=== PATIENT | male | born 1955 | race Caucasian/White ===

== ENCOUNTER 2018-07-18 21:04 | Inpatient (IN) | payer BC ==
[~2018-07-18] VITALS: Ht 185.4 cm; Wt 92.7 kg
[2018-07-18] MEDS ORDERED: OMEP20TA62 PO (21:30)
[2018-07-18 22:20] LABS: BASOPHILS # (AUTO) 0.03 x10^3/uL (0-0.1); BASOPHILS % (AUTO) 0 % (0-1); EOSINOPHILS # (AUTO) 0.28 x10^3/uL (0-0.4); EOSINOPHILS % (AUTO) 3 % (1-7); LYMPHOCYTES # (AUTO) 2.05 x10^3/uL (1-3.4); LYMPHOCYTES % (AUTO) 20 % (22-44); MD NO; MEAN CORPUSCULAR HEMOGLOBIN 31.2 pg (27.5-34.5); MEAN CORPUSCULAR HGB CONC 34.2 g/dL (33.2-36.2); MEAN CORPUSCULAR VOLUME 91.4 fL (81-97); MEAN PLATELET VOLUME 7.8 fL (7.4-10.4); MONOCYTES # (AUTO) 0.73 x10^3/uL (0.2-0.8); MONOCYTES % (AUTO) 7 % (2-9); NEUTROPHILS # (AUTO) 6.96 x10^3/uL (1.8-6.8); NEUTROPHILS % (AUTO) 69 % (42-75); PLATELET COUNT 260 x10^3/uL (130-400); RED BLOOD COUNT 5.21 x10^6/uL (4.38-5.82); RED CELL DISTRIBUTION WIDTH 12.9 % (9.4-14.8)
[2018-07-18 22:31] LABS: ALBUMIN 3.2 g/dL (3.4-5.0); ANION GAP 5 mmol/L (5-15); CALCIUM 8.2 mg/dL (8.5-10.1); CHLORIDE 113 mmol/L (98-107)
[2018-07-18 22:36] LABS: CREATININE 0.89 mg/dL (0.7-1.3)
[2018-07-18] MEDS ORDERED: HEPARIN 5,000 UNITS/ML, 1ML IV PRN (23:00)
[2018-07-18] MEDS ORDERED: HEPARIN 5,000 UNITS/ML, 1ML IV ONE (23:00)
[2018-07-18] MEDS ORDERED: HEPARIN 25,000 UNITS/500ML PMX 500 ML IV PRN (23:00)
--- NOTE | 2018-07-18 23:00 | NUR ---
2ND IV STARTED PRIOR TO HEPARIN DRIP STARTED.
[2018-07-18] MEDS ORDERED: HEPARIN 5,000 UNITS/ML, 1ML ONE (23:06)
[2018-07-18] MEDS ORDERED: HEPARIN 25,000 UNITS/500ML PMX 500 ML ONE (23:06)
[2018-07-19] MEDS ORDERED: morphine SULFATE 10 MG/ML, 1ML IVPush PRN
[2018-07-19] MEDS ORDERED: hydrALAzine 20 MG/ML, 1ML IVPush PRN
[2018-07-19] MEDS ORDERED: ZOLPIDEM 5MG TABLET PO PRN
[2018-07-19] MEDS ORDERED: NITROGLYCERIN 0.4 MG BOTTLE (25 TABS) SL PRN
[2018-07-19] MEDS ORDERED: ACETAMINOPHEN 325 MG TABLET PO PRN
[2018-07-19] MEDS ORDERED: ONDANSETRON 2MG/ML, 2ML IVPush PRN
[2018-07-19 00:30] VITALS: BP 112/80
[2018-07-19] MEDS: ATORVASTATIN 40 MG TABLET PO SCH ×2 (01:00→20:45)
[2018-07-19] MEDS: SODIUM CHLORIDE 0.9% 1,000 ML IV SCH ×2 (01:00→10:04)
[2018-07-19 01:32] VITALS: BP 112/80
[2018-07-19 04:36] LABS: BASOPHILS # (AUTO) 0.04 x10^3/uL (0-0.1); BASOPHILS % (AUTO) 0 % (0-1); EOSINOPHILS # (AUTO) 0.34 x10^3/uL (0-0.4); EOSINOPHILS % (AUTO) 3 % (1-7); LYMPHOCYTES # (AUTO) 2.27 x10^3/uL (1-3.4); LYMPHOCYTES % (AUTO) 22 % (22-44); MD NO; MEAN CORPUSCULAR HEMOGLOBIN 31.6 pg (27.5-34.5); MEAN CORPUSCULAR HGB CONC 34.3 g/dL (33.2-36.2); MEAN CORPUSCULAR VOLUME 92.1 fL (81-97); MEAN PLATELET VOLUME 7.9 fL (7.4-10.4); MONOCYTES % (AUTO) 7 % (2-9); NEUTROPHILS # (AUTO) 7.06 x10^3/uL (1.8-6.8); NEUTROPHILS % (AUTO) 68 % (42-75); PLATELET COUNT 277 x10^3/uL (130-400); RED CELL DISTRIBUTION WIDTH 12.5 % (9.4-14.8)
[2018-07-19 04:48] LABS: ANION GAP 4 mmol/L (5-15); CALCIUM 8.6 mg/dL (8.5-10.1); CHLORIDE 112 mmol/L (98-107)
[2018-07-19 04:55] LABS: CHOL/HDL RATIO 4.9; CHOLESTEROL, TOTAL 185 mg/dL (140-239); CREATININE 0.99 mg/dL (0.7-1.3); HDL CHOL % 21 % (26-37); HDL CHOLESTEROL (DIRECT) 38 mg/dL (40-60); LDL CHOLESTEROL,CALCULATED 128 mg/dL (54-169); LDL/HDL RATIO 3.4 (0.5-3.0); TRIGLYCERIDES 97 mg/dL (50-200); VLDL CHOLESTEROL 19 mg/dL (0-25)
[2018-07-19] MEDS: METOPROLOL TARTRATE 25 MG TABLET PO SCH ×2 (06:03→18:41)
[2018-07-19] MEDS: ASPIRIN 325 MG TABLET EC PO SCH (06:03)
[2018-07-19 07:47] VITALS: BP 116/76
[2018-07-19] MEDS: TAMSULOSIN 0.4 MG CAP.ER.24H PO SCH (08:18)
[2018-07-19] MEDS: PANTOPROZOLE 40MG TABLET PO SCH (08:18)
[2018-07-19] MEDS: POLYETHYLENE GLYCOL 17 GM PACKET PO SCH (08:18)
[2018-07-19 12:43] VITALS: BP 120/75
[2018-07-19] MEDS ORDERED: FENTANYL PF 100 MCG/2ML ONE (15:15)
[2018-07-19] MEDS ORDERED: LIDOCAINE 2%, 20ML ONE (15:15)
[2018-07-19] MEDS ORDERED: MIDAZOLAM 1 MG/ML, 5ML ONE (15:15)
[2018-07-19] MEDS ORDERED: BIVALIRUDIN 250 MG ONE (15:15)
[2018-07-19] MEDS ORDERED: VERAPAMIL 2.5 MG/ML, 2ML ONE (15:15)
[2018-07-19] MEDS ORDERED: HEPARIN 1,000 UNITS/ML, 10ML ONE (15:15)
[2018-07-19] MEDS ORDERED: PRASUGREL 10 MG TABLET ONE (16:32)
[2018-07-19] MEDS ORDERED: BIVALIRUDIN 250 MG in SODIUM CHLORIDE 0.9% 50 ML IV SCH (16:37)
[2018-07-19] MEDS ORDERED: SODIUM CHLORIDE 0.9% 1,000 ML IV SCH (16:37)
[2018-07-19 20:40] VITALS: BP 120/76
[2018-07-20 01:23] VITALS: BP 108/69
[2018-07-20 05:36] LABS: BASOPHILS # (AUTO) 0.05 x10^3/uL (0-0.1); BASOPHILS % (AUTO) 1 % (0-1); EOSINOPHILS # (AUTO) 0.45 x10^3/uL (0-0.4); EOSINOPHILS % (AUTO) 5 % (1-7); LYMPHOCYTES # (AUTO) 1.74 x10^3/uL (1-3.4); LYMPHOCYTES % (AUTO) 19 % (22-44); MD NO; MEAN CORPUSCULAR HEMOGLOBIN 31.3 pg (27.5-34.5); MEAN CORPUSCULAR HGB CONC 34.3 g/dL (33.2-36.2); MEAN CORPUSCULAR VOLUME 91.3 fL (81-97); MEAN PLATELET VOLUME 7.8 fL (7.4-10.4); MONOCYTES # (AUTO) 0.61 x10^3/uL (0.2-0.8); MONOCYTES % (AUTO) 7 % (2-9); NEUTROPHILS # (AUTO) 6.48 x10^3/uL (1.8-6.8); NEUTROPHILS % (AUTO) 69 % (42-75); PLATELET COUNT 251 x10^3/uL (130-400); RED BLOOD COUNT 5.35 x10^6/uL (4.38-5.82); RED CELL DISTRIBUTION WIDTH 12.8 % (9.4-14.8)
[2018-07-20 05:43] LABS: ANION GAP 6 mmol/L (5-15); CALCIUM 8.6 mg/dL (8.5-10.1); CHLORIDE 113 mmol/L (98-107); CREATININE 0.96 mg/dL (0.7-1.3)
[2018-07-20] MEDS: METOPROLOL TARTRATE 25 MG TABLET PO SCH (06:01)
[2018-07-20] MEDS: ASPIRIN 325 MG TABLET EC PO SCH (06:01)
[2018-07-20 07:36] VITALS: BP 126/85
[2018-07-20] MEDS: PANTOPROZOLE 40MG TABLET PO SCH (08:20)
[2018-07-20] MEDS: TAMSULOSIN 0.4 MG CAP.ER.24H PO SCH (08:20)
[2018-07-20] MEDS ORDERED: PRASUGREL 10 MG TABLET PO SCH (09:00)
[2018-07-20] MEDS: POLYETHYLENE GLYCOL 17 GM PACKET PO SCH (09:00)
[2018-07-20] MEDS ORDERED: METO25TA35 PO (11:26)
[2018-07-20] MEDS ORDERED: ATOR40TA78 PO (11:26)
[2018-07-20] MEDS ORDERED: PRAS10TA4 PO (11:26)
[2018-07-20] MEDS ORDERED: NITR0.4T SL (11:26)
[2018-07-20] MEDS ORDERED: TAMS-11 PO (11:26)
[2018-07-20] MEDS ORDERED: ASPI81TA45 PO (11:26)
[2018-07-20 12:22] VITALS: BP 132/78
== END 2018-07-20 16:55 | disposition home or self-care (01) | DRG 247 ==
LOC: ED 21:34 → EDIP 23:43 → 5SO 07-19 00:39 → DCLOUNGE 07-20 16:33
PROVIDERS: ADMIT Hospitalist; ATTEND Hospitalist
PROC: 027034Z Dilation of Coronary Artery, One Artery with Drug-eluting Intraluminal Device, Percutaneous Approach (ICD-10-PCS; principal; 2018-07-19)
PROC: 4A023N7 Measurement of Cardiac Sampling and Pressure, Left Heart, Percutaneous Approach (ICD-10-PCS; 2018-07-19)
PROC: B2111ZZ Fluoroscopy of Multiple Coronary Arteries using Low Osmolar Contrast (ICD-10-PCS; 2018-07-19)
PROC: B2151ZZ Fluoroscopy of Left Heart using Low Osmolar Contrast (ICD-10-PCS; 2018-07-19)
DX: I21.4 Non-ST elevation (NSTEMI) myocardial infarction (principal); I25.110 Atherosclerotic heart disease of native coronary artery with unstable angina pectoris; N40.0 Benign prostatic hyperplasia without lower urinary tract symptoms; K21.9 Gastro-esophageal reflux disease without esophagitis; F17.290 Nicotine dependence, other tobacco product, uncomplicated; E78.5 Hyperlipidemia, unspecified; K22.2 Esophageal obstruction; J00 Acute nasopharyngitis [common cold]; I49.1 Atrial premature depolarization; Z88.6 Allergy status to analgesic agent; Z80.0 Family history of malignant neoplasm of digestive organs; Z82.49 Family history of ischemic heart disease and other diseases of the circulatory system; Z88.8 Allergy status to other drugs, medicaments and biological substances; Z71.6 Tobacco abuse counseling
CPT/HCPCS: 36415; 93458; C9600; 0399T; 80048; 80061; 82040; 84484; 85025; 85520; 93005; 93306; 99156; C1769; G0378; J0583; J1644; J2250; J3010; J3490; C1874; C1887; J7030; Q9967